=== PATIENT | male | born 1960 | race Caucasian/White ===

== ENCOUNTER 2017-12-23 09:52 | Day surgery (SDC) | payer BC ==
[~2017-12-23] VITALS: Ht 180.3 cm; Wt 90.9 kg
[~2017-12-23 09:52] MED LIST: NONE PER PT
[2017-12-23] MEDS ORDERED: BUPIVACAINE/PF-EPI 0.5% 1:200K ONE (09:58)
[2017-12-23] MEDS ORDERED: BACITRACIN OINT 500U/GM, 15 GM ONE (09:58)
[2017-12-23] MEDS ORDERED: LACTATED RINGERS 1,000 ML IV SCH (10:13)
[2017-12-23] MEDS ORDERED: MIDAZOLAM 1 MG/ML, 2ML ONE (10:25)
[2017-12-23] MEDS ORDERED: FENTANYL PF 250 MCG/5ML ONE (10:25)
[2017-12-23] MEDS ORDERED: CEFAZOLIN 1,000 MG ONE (10:26)
[2017-12-23] MEDS ORDERED: ONDANSETRON 2MG/ML, 2ML ONE (10:26)
[2017-12-23] MEDS ORDERED: NEOSTIGMINE 1 MG/ML, 10ML ONE (10:26)
[2017-12-23] MEDS ORDERED: DEXAMETHASONE 4 MG/ML, 1ML ONE (10:26)
[2017-12-23] MEDS ORDERED: ROCURONIUM 10MG/ML,5ML ONE (10:26)
[2017-12-23] MEDS ORDERED: GLYCOPYRROLATE 0.2MG/1ML, 5ML ONE (10:26)
[2017-12-23] MEDS ORDERED: PROPOFOL 10 MG/ML, 20ML ONE (10:26)
[2017-12-23] MEDS ORDERED: SUCCINYLCHOLINE 20 MG/ML, 10ML ONE (10:26)
[2017-12-23] MEDS ORDERED: FENTANYL PF 100 MCG/2ML IV PRN (10:30)
[2017-12-23] MEDS ORDERED: ONDANSETRON 2MG/ML, 2ML IV PRN (10:30)
[2017-12-23] MEDS ORDERED: ACETAMINOPHEN 325 MG TABLET PO PRN (10:30)
[2017-12-23] MEDS ORDERED: ONDANSETRON ODT 8 MG PO PRN (10:30)
[2017-12-23] MEDS ORDERED: MORPHINE SULFATE 4 MG/ML, 1ML IVPush PRN (10:30)
[2017-12-23] MEDS ORDERED: OXYcodone 5 MG/5 ML ORAL.SOL UDC PO PRN (10:30)
[2017-12-23 10:38] VITALS: BP 152/101
[2017-12-23] MEDS ORDERED: BUPIVACAINE/PF-EPI 0.5% 1:200K INFIL ONE (11:06)
[2017-12-23] MEDS ORDERED: ACETAMINOPHEN 650 MG/20.3 ML UDC ONE (12:25)
[2017-12-23] MEDS ORDERED: OXYcodone 5 MG/5 ML ORAL.SOL UDC ONE (12:25)
[2017-12-23] MEDS ORDERED: OXYcodone/APAP 5/325MG TABLET PO PRN (12:30)
== END 2017-12-23 14:15 | disposition home or self-care (01) ==
LOC: OUT 09:52 → EDBD 15:00
PROVIDERS: ATTEND Urology
DX: N43.40 Spermatocele of epididymis, unspecified (principal); Z72.89 Other problems related to lifestyle; Z98.890 Other specified postprocedural states
CPT/HCPCS: 54840; 88304; J0330; J0690; J1100; J2250; J2405; J2704; J2710; J3010; J3490; J7120